=== PATIENT | male | born 2000 | race Caucasian/White ===

== ENCOUNTER 2021-03-15 21:46 | Emergency (ER) | payer SELFPAY ==
[2021-03-15 22:00] VITALS: BP 143/92; PULSE 89; RESP 16; TEMP 36.3; O2SAT 100
--- NOTE | 2021-03-15 23:16 | PC.NURSE ---
pt requesting to leave at this time. does not want to wait any longer.
== END 2021-03-16 05:08 | disposition left against medical advice (07) ==
PROVIDERS: Emergency Provider Pediatrics
DX: J02.9 Acute pharyngitis, unspecified (principal)
CPT/HCPCS: 87081; 87880; 99199

== ENCOUNTER 2023-05-03 11:15 | Emergency (ER) | payer BC, SELFPAY ==
[2023-05-03 11:35] VITALS: BP 118/80; PULSE 106; RESP 20; TEMP 37; O2SAT 100
--- NOTE | 2023-05-03 13:10 | PC.NURSE ---
1220- talking to patient at present, pt states that he didnt need anything, and that he is fine. no new c/o at present, awaiting ORTHOPEDIC TECHNICIAN exam .
--- NOTE | 2023-05-03 13:55 | PC.NURSE ---
1305- pt left exam room and left the buildling. pt left without seeing provider.
== END 2023-05-03 13:55 | disposition left against medical advice (07) ==
PROVIDERS: Emergency Provider Nurse Practitioner; PCP Family Medicine
DX: J02.9 Acute pharyngitis, unspecified (principal)
CPT/HCPCS: 87081; 87880; 99199